=== PATIENT | male | born 1995 | race Caucasian/White ===

== ENCOUNTER 2021-05-20 23:03 | Emergency (ER) | payer BC ==
[2021-05-20] MEDS ORDERED: Sodium Chloride 0.9% 1,000 ML IV SCH (23:45)
[2021-05-20] MEDS ORDERED: Sodium Chloride 0.9% 1,000 ML IV ONE (23:50)
[2021-05-21 00:50] LABS: ACETAMINOPHEN 0 ug/mL (10-30)
== END 2021-05-21 08:32 | disposition home or self-care (01) ==
LOC: JD.ED 23:03
DX: F31.9 Bipolar disorder, unspecified (principal); Z20.822 Contact with and (suspected) exposure to COVID-19
CPT/HCPCS: 36415; 80053; 80143; 80179; 80307; 84443; 85025; 87635; 93005; 99284; J7030; 93010; U0002

== ENCOUNTER 2021-05-21 23:18 | Emergency (ER) | payer BC ==
[2021-05-22] MEDS ORDERED: QUEtiapine 25 MG Tab PO ONE (00:05)
== END 2021-05-22 00:25 | disposition home or self-care (01) ==
LOC: JD.ED 23:18
DX: F41.9 Anxiety disorder, unspecified (principal); G47.00 Insomnia, unspecified; Z88.2 Allergy status to sulfonamides; Z72.0 Tobacco use
CPT/HCPCS: 99283; A9270